=== PATIENT | male | born 1965 | race Caucasian/White ===

== ENCOUNTER 2023-01-18 | Emergency (ER) | payer OTHER ==
[~2023-01-18] VITALS: Ht 170.2 cm; Wt 89.8 kg
--- NOTE | 2023-01-18 00:50 | NUR ---
Dr. Ramirez at bedside. MSE in progress.
[2023-01-18] MEDS ORDERED: KETOROLAC TROMETHAMINE 15 MG INJ ONE (00:58)
[2023-01-18] MEDS ORDERED: LIDOCAINE 5% PATCH TD ONE (01:00)
[2023-01-18] MEDS: KETOROLAC TROMETHAMINE 15 MG INJ IM ONE (01:03)
[2023-01-18] MEDS: LIDOCAINE 5% PATCH TD ONE (01:05)
--- NOTE | 2023-01-18 01:12 | NUR ---
Xray at bedside.
--- NOTE | 2023-01-18 02:25 | NUR ---
Patient ambulated to the bathroom independently. Activity tolerated well.
--- NOTE | 2023-01-18 03:34 | NUR ---
Patient discharged to home in stable condition. Written and verbal after care instructions given. Patient verbalizes understanding of instructions. Stressed follow up or return to ER for worsening s/s.
[2023-01-18 03:38] VITALS: BP 135/74
== END 2023-01-18 03:34 | disposition home or self-care (01) ==
LOC: ER
DX: M25.562 Pain in left knee (principal); E78.5 Hyperlipidemia, unspecified
CPT/HCPCS: 99283; 73564; 96372; J1885; A4663